=== PATIENT | male | born 1955 | race Two or more races ===

== ENCOUNTER 2018-06-04 21:15 | Inpatient (IN) | payer SELFPAY ==
[~2018-06-04] VITALS: Ht 170.2 cm; Wt 48.5 kg
--- NOTE | 2018-06-04 21:35 | NUR ---
PT BBRA FROM THE STREET FOR L HIP PAIN, ALSO C/O PROD COUGH; PT AAOX4, PT ON MONITOR, VSS, NAD NOTED, PENDING ER PROVIDER EVAL
[2018-06-04] MEDS ORDERED: ONDANSETRON HCL/PF 4 MG/2 ML VIAL ONE (22:00)
[2018-06-04] MEDS ORDERED: ONDANSETRON HCL/PF 4 MG/2 ML VIAL IVP ONE (22:00)
[2018-06-04] MEDS ORDERED: IV NS 0.9% 1,000 ML BAG IV ONE (22:00)
[2018-06-04] MEDS ORDERED: MORPHINE SULFATE INJ 2 MG/ML DISP.SYRIN IV ONE ×2 (22:00→22:30)
[2018-06-04] MEDS ORDERED: MORPHINE SULFATE INJ 4 MG/ML DISP.SYRIN ONE ×2 (22:01→23:11)
[2018-06-04 22:03] LABS: BASOPHILS # (AUTO) 0.1 /CMM (0.0-0.2); BASOPHILS % (AUTO) 0.8 % (0.0-2.0); EOSINOPHILS % (AUTO) 0.6 % (0.0-6.0); HEMATOCRIT 43 % (39-51); HEMOGLOBIN 14.2 g/dL (13.5-17.5); LYMPHOCYTES # (AUTO) 1.3 /CMM (0.8-4.8); LYMPHOCYTES % (AUTO) 14.3 % (20.0-44.0); MEAN CORPUSCULAR HGB CONC 33 g/dl (31.0-36.0); MEAN CORPUSCULAR VOLUME 87 fL (80-96); MONOCYTES # (AUTO) 0.5 /CMM (0.1-1.30); NEUTROPHILS # (AUTO) 7.1 /CMM (1.8-8.9); NEUTROPHILS % (AUTO) 78.3 % (43.0-81.0); PLATELET COUNT (AUTO) 493 /CMM (150-450); RED BLOOD CELL COUNT(AUTO) 4.88 MIL/uL (4.5-6.0)
[2018-06-04 22:17] LABS: ALBUMIN 2.9 g/dL (3.4-5.0); BILIRUBIN,DIRECT 0.1 mg/dL (0.0-0.2); BILIRUBIN,TOTAL 0.5 mg/dL (0.2-1.0); CALCIUM, SERUM 8.8 mg/dL (8.5-10.1); CREATININE 0.6 mg/dL (0.6-1.3); POTASSIUM 3.9 mmol/L (3.5-5.1); TOTAL PROTEIN, SERUM 7.2 g/dL (6.4-8.2)
--- NOTE | 2018-06-04 22:46 | NUR ---
UZMA PERRY FOR CONSULT - DISABILITIES CAREGIVER DR. RANDOLPH Addendum: 06/04/18 at 2247 by KALEN PAGE WAS SENT OUT AT [id number]
--- NOTE | 2018-06-04 22:52 | NUR ---
PAGED [employer] FOR PANEL - CHASER TAR DR SALINAS
--- NOTE | 2018-06-04 23:26 | NUR ---
REPORT GIVEN TO TING ESCOBEDO FOR TRICIA; PT WILL BE TRANSORTED TO 3RD FLOOR VIA GURNEY WITH SPRING ENCASER
--- NOTE | 2018-06-04 23:55 | NUR ---
ADMISSION NOTES: RECEIVED REPORT FROM MUNIRA ESCOBEDO. PT BROUGHT TO THE UNIT VIA GURNEY, PT IS HOMELESS, S/P TRIP AND FALL LANDING ONTO LEFT HIP. TRANSFERRED TO BED USING LOG ROLL TECHNIQUE WITH LEFT HIP PRECAUTIONS, LLE OFFLOADED ON ROLLED TOWEL. ORIENTED PT TO UNIT POLICY AND HOURLY ROUNDING. IV ACCESS PATENT AND FLUSHING WELL, ON HL. SKIN ASSESSMENT PERFORMED. BED BATH PROVIDED TO THE PT BY MECHANICAL TECHNICAL SERVICE SPECIALIST. INVENTORY OF BELONGINGS COMPLETED BY PALLAVI DUMONT, PT BROUGHT SO MUCH BELONGINGS, AND CONTRABANDS, TOOK PICTURES, WILL BE ATTACHED TO CHART. WOUND CARE CONSULT OBTAINED. VS TAKEN AND RECORDED. SAFETY PRECAUTIONS FOR FALL INITIATED, CALL LIGHT IN REACH, WILL CONTINUE MONITORING PT.
[2018-06-05] VITALS: BP 132/85
[2018-06-05] MEDS ORDERED: ONDANSETRON HCL/PF 4 MG/2 ML VIAL IVP PRN
[2018-06-05] MEDS ORDERED: ZOLPIDEM TARTRATE 5 MG TABLET PO PRN
[2018-06-05] MEDS ORDERED: ACETAMINOPHEN 325 MG TABLET PO PRN
[2018-06-05] MEDS ORDERED: Z GUARD REMEDY 2 OZ OINT TP PRN
[2018-06-05] MEDS ORDERED: MAG HYDROX/AL HYDROX/SIMETH 30 ML UDC PO PRN
[2018-06-05] MEDS ORDERED: MAGNESIUM HYDROXIDE 30 ML UDC PO PRN
[2018-06-05] MEDS ORDERED: HYDROCODONE/APAP 5/325MG 1 EACH TABLET PO PRN
[2018-06-05] MEDS ORDERED: METF-440 PO (02:36)
[2018-06-05] MEDS: ENOXAPARIN SODIUM 40 MG/0.4 ML DISP.SYRIN SQ SCH (02:48)
[2018-06-05] MEDS ORDERED: OXYC-128 PO (02:57)
--- NOTE | 2018-06-05 02:58 | NUR ---
RN NOTES: PT C/O PAIN IN HIS LEFT HIP, REQUESTING FOR PERCOCET, PT REFUSING NORCO, CONTACTED FIRE DEPARTMENT BATTALION CHIEF MD, RELAYED REQUEST OF PT TO GET PERCOCET NORCO NOT EFFECTIVE FOR HIS PAIN, PER MD TO DC NORCO, AND ORDER PERCOCET 5/325 MG TAB PO Q4HRS PRN FOR 4-7 PAIN
--- NOTE | 2018-06-05 03:05 | NUR ---
RN NOTES: MADE MD AWARE ABOUT PT'S HX OF DM AND WAS ON METFORMIN 500MG TAB PO BID, PER MD " WILL CHECK HGBA1C AND WILL FOLLOW"
--- NOTE | 2018-06-05 03:06 | NUR ---
CLARIFICATION OF ORDER: PERCOCET 5/325 MG TAB Q4HRS PRN FOR 8-10 SEVERE PAIN PER MD
[2018-06-05] MEDS: oxyCODONE/APAP (5/325 MG) 1 UDTAB TABLET PO PRN ×3 (03:10→13:44)
--- NOTE | 2018-06-05 03:11 | NUR ---
PRN PERCOCET: PT C/O 10/24 LEFT HIP PAIN REQUESTING FOR PERCOCET, PRN PERCOCET 5/325 MG TAB PO ADMINISTERED TO THE PT AT THIS TIME, WILL CONTINUE TO MONITOR AND REASSESS PT
--- NOTE | 2018-06-05 03:30 | NUR ---
RN NOTES: PT ABLE TO TURN AND REPOSITON HIMSELF, ENCOURAGE TO CHANGE HIS POSITION EITHER LAYING ON HIS RIGHT SIDE OR BACK EVERY 2HRS IN ORDER TO PREVENT ANY PRESSURE ULCER OR WORSENING OF ANY SKIN ISSUES. PT NOTED TO HAVE SUSPECTED DTI ON SACRAL AREA ALTHOUGH SKIN AROUND AREA IS INTACT.
--- NOTE | 2018-06-05 06:31 | NUR ---
RN CLOSING NOTES: PT REMAINS A/O X3, ON RA, LEFT HIP P[RECAUTION, REFUSED SCD, EDUCATION PROVIDED TO THE PT. IV ACCESS REMAINS PATENT AND FLUSHING WELL, ON HL. FOR ORTHO CONSULT IN AM. VS REMAINS STABLE, NEEDS ATTENDED, URINAL WITHIN REACH. SAFETY PRECAUTIONS FOR FALL REMAINS ENGAGED, CALL LIGHT IN REACH, WILL ENDORSE TO DAY RN FOR CONTINUITY OF CARE.
[2018-06-05 07:11] LABS: BASOPHILS % (AUTO) 0.5 % (0.0-2.0); HEMATOCRIT 39 % (39-51); HEMOGLOBIN 13.6 g/dL (13.5-17.5); LYMPHOCYTES # (AUTO) 1.6 /CMM (0.8-4.8); LYMPHOCYTES % (AUTO) 23.5 % (20.0-44.0); MEAN CORPUSCULAR HGB CONC 35 g/dl (31.0-36.0); MEAN CORPUSCULAR VOLUME 86 fL (80-96); MONOCYTES # (AUTO) 0.5 /CMM (0.1-1.30); MONOCYTES % (AUTO) 7.6 % (2.0-12.0); NEUTROPHILS # (AUTO) 4.6 /CMM (1.8-8.9); NEUTROPHILS % (AUTO) 67.4 % (43.0-81.0); PLATELET COUNT (AUTO) 466 /CMM (150-450); RED BLOOD CELL COUNT(AUTO) 4.51 MIL/uL (4.5-6.0); WHITE BLOOD COUNT (AUTO) 6.9 K/uL (4.3-11.0)
[2018-06-05 07:19] LABS: CALCIUM, SERUM 8.6 mg/dL (8.5-10.1); CREATININE 0.5 mg/dL (0.6-1.3); MAGNESIUM 1.9 mg/dL (1.8-2.4); PHOSPHORUS 2.1 mg/dL (2.5-4.9); POTASSIUM 3.9 mmol/L (3.5-5.1)
--- NOTE | 2018-06-05 07:43 | NUR ---
m/s heavy duty custodian: notes c/o 10/24 left hip pain, medicated with percocet 1 tab po as ordered. instructed to call for assistance. will continue to monitor.
[2018-06-05 08:00] VITALS: BP 123/79
--- NOTE | 2018-06-05 08:43 | NUR ---
m/s route service manager: notes voiced no discomfort at this time. call light within reach. will monitor.
--- NOTE | 2018-06-05 08:53 | NUR ---
WOUND CARE CONSULT: PT PRESENTS WITH DRY ABRASIONS TO EXTREMITIES AND TO RT EYEBROW AREA AND INTACT DEEP TISSUE INJURY TO SACRUM, PRESENT ON ADMISSION. BRUISING NOTED TO LEFT HIP PRESENT ON ADMISSION. RECOMMENDATIONS MADE FOR SKIN PROTECTION. DISCUSSED WITH NURSING STAFF. CURRENT GLADYS SCORE IS 14. ISOFLEX LOW AIRLOSS BED TO BE PLACED. PT IS CACHECTIC. DIETARY FOLLOW UP RECOMMENDED. Addendum: 06/05/18 at 0855 by TANVIR HOROWITZ WNDNU Amended: Links added.
[2018-06-05] MEDS ORDERED: BISACODYL (5 MG) 5 MG TABLET.DR PO PRN (09:00)
[2018-06-05] MEDS ORDERED: MAGNESIUM CITRATE 296 ML BOTTLE PO ONE (09:00)
--- NOTE | 2018-06-05 10:00 | NUR ---
m/s tip cementer: md visit seen and examined by roxy (em) at this time. will continue to monitor.
--- NOTE | 2018-06-05 10:15 | NUR ---
m/s director specialty: social service consult abiel (s.[email or web address]) at bedside at this time.
--- NOTE | 2018-06-05 11:30 | NUR ---
m/s tomographic tech: notes alfred blum (cici.a.) here and informed me no surgery needed and will see pt. will continue to monitor.
--- NOTE | 2018-06-05 11:34 | NUR ---
Social service consult requested by JACQUI Vaughn for homelessness. Pt. is a 62 year old male who was admitted to [facility] for left hip fracture. Per doctor's notes, pt. states he tripped and fell yesterday onto his left hip. Pt. has a significant history fo left hip replacement. LD met with pt. bedside. Pt. is alert and oriented x 3. Pt. states he has been homeless for the past 6 years. Pt. stays in a tent near the [place] in [place]. Pt. receives SSI per month in the amount of $1869. Pt. drinks a glass of wine every night or every couple of days. Pt. denies any drug use. Pt. smokes a pack of cigarettes per day. Pt. states he has depression but is not taking any medication for it. Pt. denies suicidal and homicidal ideations and visual/auditory hallucinations. LD informed pt. that depending on his fracture he might be deemed appropriate for a SNF. Pt. stated, he is not sure if he would want to go and states he can try to use a wheelchair or crutches if he has to. LD informed pt. the doctor will have to deem what would be an appropriate discharge plan. Pt. understood. pension manager Renee Sparks has been updated with the aforementioned information.
--- NOTE | 2018-06-05 12:00 | NUR ---
m/s senior cisco network engineer: notes lunch served. instructed to call for assistance. will monitor.
[2018-06-05] MEDS ORDERED: HYDROMORPHONE INJ 0.5 MG/0.5 ML SYRINGE IV PRN (12:30)
[2018-06-05] MEDS ORDERED: DEXTROSE 50%-WATER 50 ML DISP.SYRIN IV PRN (12:30)
[2018-06-05] MEDS ORDERED: K PHOS NEUTRAL 250 MG TABLET PO ONE (13:30)
--- NOTE | 2018-06-05 13:44 | NUR ---
m/s plaster tender: notes c/o 11/24 left hip pain, medicated with percocet 1 tab po as ordered. instructed to call for assistance. will continue to monitor.
[2018-06-05] MEDS: GLUCERNA SHAKE 237 ML CAN PO SCH ×2 (14:00→17:11)
--- NOTE | 2018-06-05 14:44 | NUR ---
m/s cold food packer: notes pt verbalized some relief of left hip pain. instructed to call for assistance. will continue to monitor.
--- NOTE | 2018-06-05 15:00 | NUR ---
m/s seat joiner: notes transferred to isoflex bed at this time. kept comfortable. will continue to monitor.
--- NOTE | 2018-06-05 15:08 | NUR ---
m/s device test engineer: notes f/u made to dietary dept re: glucsusanne, spoke to alisson and informed that it will come on the dinner tray.
[2018-06-05 16:10] VITALS: BP 116/86
--- NOTE | 2018-06-05 16:38 | NUR ---
Patient is admitted due to left hip injury s/p fall.Patient states he has been homeless for the past 6 years. Seen and evaluated by licensed clinical social worker earlier. Patient states he lives in a tent near the [place] in [place]. Patient receives SSI per month in the amount of $1869. He drinks a glass of wine every night or every couple of days. He denies any drug use. He smokes a pack of cigarettes per day. Patient states he has depression but is not taking any medication for it. He denies suicidal and homicidal ideations and visual/auditory hallucinations. Awaiting ortho consult, patient might need placement depending on his mobility status and adl's needs. Addendum: 06/05/18 at 1639 by MADHAVI DIAS RN Amended: Links added.
[2018-06-05] MEDS: INSULIN REGULAR, HUMAN 100 UNIT/ML 3 ML VIAL SQ PRN ×2 (17:04→22:06)
[2018-06-05] MEDS: BLOOD SUGAR DIAGNOSTIC 1 EACH STRIP IN SCH ×2 (17:04→22:04)
--- NOTE | 2018-06-05 17:34 | NUR ---
m/s rural sociologist: ortho consult seen and examined by alfred blum (ana) with verbal order for p.t. eval and wbat. orders read back and carried out and acknowledged.
--- NOTE | 2018-06-05 18:42 | NUR ---
m/s boilermaker pipe fitter: notes resting comfortable in bed. needs attended. no apparent distress noted. call light within reach.
--- NOTE | 2018-06-05 19:05 | NUR ---
MS RN NOTES: RECEIVED PT IN BED AWAKE. PT A/O X4 AND ABLE TO MAKE NEEDS KNOWN. IV ACCESS ON LFA #18G PATENT AND INTACT, HL. SAFETY PRECAUTIONS IN PLACE WITH BED IS LOWEST POSITION AND SIDE RAILS UP X2. CALL LIGHT IN REACH. WILL CONTINUE TO MONITOR.
--- NOTE | 2018-06-05 19:05 | NUR ---
m/s shoe repairer apprentice: notes bedside report given to ac (rn) for continuity of care.
[2018-06-05] MEDS: HYDROMORPHONE 1 MG/1 ML DISP.SYRIN IV PRN (19:58)
[2018-06-05 20:00] VITALS: BP 134/76
[2018-06-06] MEDS: ENOXAPARIN SODIUM 40 MG/0.4 ML DISP.SYRIN SQ SCH (00:12)
[2018-06-06] MEDS: HYDROMORPHONE 1 MG/1 ML DISP.SYRIN IV PRN ×4 (02:23→21:45)
--- NOTE | 2018-06-06 02:25 | NUR ---
[place] ms covering notes patient complaint of pain left hip 12/24 requesting for dilaudid vs wnl 134/81,18,77,97% ra,12/24 prn dilaudid given as ordered will continur to monitor and endorse to nurse. Addendum: 06/06/18 at 0228 by BENJAMIN DOWD RN dilaudid 1ml given as ordered
[2018-06-06] MEDS: BLOOD SUGAR DIAGNOSTIC 1 EACH STRIP IN SCH ×3 (06:45→17:38)
--- NOTE | 2018-06-06 07:00 | NUR ---
MS RN NOTES: PT IN BED SLEEPING BUT EASILY AWOKEN VERBALLY OR BY TOUCH. PT A/O X4 AND ABLE TO MAKE NEEDS KNOWN. IV ACCESS ON LFA #18G PATENT AND INTACT, HL. RESPIRATIONS EVEN AND UNLABORED WITH NO S/S OF ACUTE DISTRESS OR SOB THROUGHOUT SHIFT. SAFETY PRECAUTIONS IN PLACE WITH BED IS LOWEST POSITION AND SIDE RAILS UP X2. CALL LIGHT IN REACH. WILL ENDORSE TO ONCOMING NURSE FOR CONTINUATION OF CARE.
[2018-06-06 07:32] LABS: BASOPHILS % (AUTO) 0.8 % (0.0-2.0); EOSINOPHILS % (AUTO) 2.3 % (0.0-6.0); HEMATOCRIT 39 % (39-51); MEAN CORPUSCULAR HGB CONC 34 g/dl (31.0-36.0); MEAN CORPUSCULAR VOLUME 86 fL (80-96); MONOCYTES # (AUTO) 0.3 /CMM (0.1-1.30); MONOCYTES % (AUTO) 5.8 % (2.0-12.0); NEUTROPHILS # (AUTO) 4.3 /CMM (1.8-8.9); NEUTROPHILS % (AUTO) 74.1 % (43.0-81.0); PLATELET COUNT (AUTO) 424 /CMM (150-450); RED BLOOD CELL COUNT(AUTO) 4.46 MIL/uL (4.5-6.0); WHITE BLOOD COUNT (AUTO) 5.7 K/uL (4.3-11.0)
--- NOTE | 2018-06-06 07:38 | NUR ---
MS RN NOTES PT REFUSED INSULIN COVERAGE FOR BS 350. EXPLAINED RISKS AND BENEFITS AND PT VERBALIZED UNDERSTANDING.
[2018-06-06 07:44] LABS: CALCIUM, SERUM 8.4 mg/dL (8.5-10.1); CREATININE 0.6 mg/dL (0.6-1.3); POTASSIUM 4.1 mmol/L (3.5-5.1)
--- NOTE | 2018-06-06 07:59 | NUR ---
MS RN NOTES PATIENT RECEIVED RESTING INSIDE ROOM. AWAKE, ALERT AND ORIENTED X4, VERBALLY RESPONSIVE AND RESPONDS TO VERBAL AND TACTILE STIMULI. BREATHING EVEN AND UNLABORED. NO CHANGES IN LOC NOTED AT THIS TIME. PATIENT CALM AND RELAXED. DENIES ANY PAIN OR DISCOMFORT. RECEIVED ENDORSEMENT FROM PREVIOUS SHIFT THAT PATIENT REFUSES TO HAVE INSULIN. WITH REPORT OF HIGH FSBS RESULTS. SPOKE WITH PATIENT AND PATIENT INSISTS THAT HE SHOULDNT HAVE INSULIN. RISKS AND BENEFITS EXPLAINED BUT TO NO AVAIL. PATIENT STRONGLY REFUSES TO HAVE INSULIN. HOSPITALIST AWARE. WILL CONTINUE TO MONITOR. BED LOCKED AND IN LOW POSITION. BILATERAL UPPER SIDE RAILS UP AND LOCKED. CALL LIGHT WITHIN EASY REACH
[2018-06-06 08:00] VITALS: BP 126/76
[2018-06-06] MEDS: GLUCERNA SHAKE 237 ML CAN PO SCH ×3 (08:38→17:40)
[2018-06-06] MEDS ORDERED: OXYC-128 PO (10:17)
[2018-06-06] MEDS ORDERED: METF-440 PO (10:17)
--- NOTE | 2018-06-06 11:11 | NUR ---
MS RN NOTES PATIENT SEEN AND EVALUATED BY PT. PATIENT AMBULATED WITH EASE WITH USE OF FWW. DENIES ANY PAIN OR DISCOMFORT. WITH RECOMMENDATION THAT PATIENT WILL BENEFIT WITH USE OF FWW WHEN DISCHARGED. VALERIE MANAGER UROLOGY MADE AWARE AND GAVE OK. CENTRAL SUPPLY MADE AWARE. WILL PROVIDE FWW TO PATIENT UPON DISCHARGE. WILL CONTINUE TO MONITOR
[2018-06-06] MEDS: INSULIN REGULAR, HUMAN 100 UNIT/ML 3 ML VIAL SQ PRN ×2 (12:03→17:38)
--- NOTE | 2018-06-06 12:18 | NUR ---
MS RN NOTES FSBS TAKEN PRIOR TO LUNCH WITH RESULT OF 386. REPEATED TEST PER PROTOCOL WITH RESULT OF 407. PATIENT AGREED TO HAVE INSULIN ADMINISTERED. GIVEN INSULIN PER SLIDING SCALE. VALERIE CUSTOMER SERVICE CASHIER MADE AWARE. NO NEW ORDERS AT THIS TIME. WILL CONTINUE TO MONITOR
[2018-06-06 16:00] VITALS: BP 120/82
--- NOTE | 2018-06-06 17:39 | NUR ---
MS RN NOTES PATIENT WITH FSBS RESULT OF 142. PATIENT REFUSED TO HAVE INSULIN PER SLIDING SCALE. RISKS AND BENEFITS EXPLAINED BY TO NO AVAIL. PATIENT STRONGLY REFUSED TO HAVE INSULIN. HOSPITALIST AWARE. WILL CONTINUE TO MONITOR
--- NOTE | 2018-06-06 19:28 | NUR ---
MS NOTES PATIENT RESTING INSIDE ROOM. AWAKE, ALERT AND ORIENTED, VERBALLY RESPONSIVE AND RESPONDS TO VERBAL AND TACTILE STIMULI. NO ACUTE DISTRESS NOTED AT THIS TIME. NO CHANGES IN LOC NOTED. IV INTACT AND PATENT. FWW RECEIVED FROM CENTRAL SUPPLY AND GIVEN TO PATIENT. ENDORSED TO INCOMING SHIFT FOR TRICIA. BED LOCKED AND IN LOW POSITION. BILATERAL UPPER SIDE RAILS UP AND LOCKED. CALL LIGHT WITHIN EASY REACH
[2018-06-06] MEDS: oxyCODONE/APAP (5/325 MG) 1 UDTAB TABLET PO PRN (20:25)
--- NOTE | 2018-06-06 22:30 | NUR ---
DISCHARGE NOTE: A/o X4 SIGNED AFTER CARE INSTRUCTION, AND PERSONAL BELONGING LIST. PT AMBULATING AROUND HALLWAY WITH FWW. DISCHARGED VIA W/C TO TAXI GIVEN [employer] NET DEVELOPER THE TWO VOUCHER SLIPS. OFFERED PATIENT TO STAY THE NIGHT IN THE HOSPITAL. PT REFUSED" STATED " I WANT TO BE DISCHARGED TONIGHT!" d/C S/L CATH INTACT. GIVEN R/X PERCOCET AND METAFORMIN. C/0 2-10 Hip pain Denies of any other distress.
== END 2018-06-06 22:20 | disposition home or self-care (01) | DRG 536 ==
LOC: ER 21:17 → MED 23:34
PROVIDERS: ADMIT Internal Medicine; ATTEND Nurse Practitioner Acute Care
DX: S72.115A Nondisplaced fracture of greater trochanter of left femur, initial encounter for closed fracture (principal); E44.0 Moderate protein-calorie malnutrition; W01.0XXA Fall on same level from slipping, tripping and stumbling without subsequent striking against object, initial encounter; Y92.9 Unspecified place or not applicable; E78.5 Hyperlipidemia, unspecified; I10 Essential (primary) hypertension; Y92.89 Other specified places as the place of occurrence of the external cause; E11.9 Type 2 diabetes mellitus without complications; Z59.0 Homelessness; K21.9 Gastro-esophageal reflux disease without esophagitis; F20.9 Schizophrenia, unspecified; Z96.642 Presence of left artificial hip joint; Z90.49 Acquired absence of other specified parts of digestive tract; M19.90 Unspecified osteoarthritis, unspecified site; Z91.19 Patient's noncompliance with other medical treatment and regimen
CPT/HCPCS: 36415; 71045-TC; 73502; 73700-TC; 80048-TC; 80076-TC; 82962-TC; 83735-TC; 84100-TC; 85025-TC; 85730-TC; 87081-TC; G0378; J1170; J1650; J1815; J2270; J2405; J7030

== ENCOUNTER 2019-02-16 03:56 | Inpatient (IN) | payer MEDICAID ==
[~2019-02-16] VITALS: Ht 170.2 cm; Wt 52.2 kg
[~2019-02-16 03:56] MED LIST: LEVO750T21; METF-440 PO
--- NOTE | 2019-02-16 04:14 | NUR ---
PT BIB RA WITH A C/O FEELING COLD AND HX OF PNA. PT HAS A CHESTY COUGH W/RHONCHI NOTED. DR. STRANGE IS AT THE BEDSIDE EVALUATING THE PT. PT STATED THAT HE SMOKES CIGARETTES DAILY. PT IS ON THE MONITOR AND CONTINUOUS PULSE OX. PT IS SPEAKING IN COMPLETE SENTENCES, BUT IS C/O NOT BEING ABLE TO BREATHE. WILL CONTINUE TO MONITOR THE PT.
[2019-02-16] MEDS ORDERED: LEVOFLOXACIN 750 MG /D5W 150ML 150 ML IV ONE ×2 (04:19→04:30)
--- NOTE | 2019-02-16 04:20 | NUR ---
IV STARTED, BLOOD CULTURES X 2 DRAWN AND LABS DRAWN. EKG IN PROGRESS. PT IS ON THE MONITOR AND CONTINUOUS PULSE OX.
--- NOTE | 2019-02-16 04:35 | NUR ---
INFLUENZA SWAB SENT.
[2019-02-16 04:36] LABS: BASOPHILS # (AUTO) 0.1 /CMM (0.0-0.2); BASOPHILS % (AUTO) 0.5 % (0.0-2.0); EOSINOPHILS % (AUTO) 0.8 % (0.0-6.0); HEMATOCRIT 46 % (39-51); LYMPHOCYTES # (AUTO) 1.3 /CMM (0.8-4.8); LYMPHOCYTES % (AUTO) 10.9 % (20.0-44.0); MEAN CORPUSCULAR HGB CONC 33 g/dl (31.0-36.0); MEAN CORPUSCULAR VOLUME 87 fL (80-96); MONOCYTES # (AUTO) 0.6 /CMM (0.1-1.30); MONOCYTES % (AUTO) 5.2 % (2.0-12.0); NEUTROPHILS # (AUTO) 9.5 /CMM (1.8-8.9); NEUTROPHILS % (AUTO) 82.6 % (43.0-81.0); PLATELET COUNT (AUTO) 397 /CMM (150-450); RED BLOOD CELL COUNT(AUTO) 5.22 MIL/uL (4.5-6.0); WHITE BLOOD COUNT (AUTO) 11.5 K/uL (4.3-11.0)
[2019-02-16 05:00] LABS: ALANINE AMINOTRANSFERASE 18 U/L (12-78); ALBUMIN 3.1 g/dL (3.4-5.0); ALKALINE PHOSPHATASE 90 U/L (46-116); ASPARTATE AMINOTRANSFERASE 14 U/L (15-37); B-TYPE NATRIURETIC PEPTIDE 48 PG/ML (0-125); BILIRUBIN,DIRECT 0.1 mg/dL (0.0-0.2); BILIRUBIN,TOTAL 0.4 mg/dL (0.2-1.0); CARBON DIOXIDE 33 mmol/L (21-32); CHLORIDE 100 mmol/L (98-107); CREATININE 0.7 mg/dL (0.6-1.3); POTASSIUM 4.3 mmol/L (3.5-5.1); SODIUM SERUM 137 mmol/L (136-145); TOTAL PROTEIN, SERUM 6.6 g/dL (6.4-8.2); UREA NITROGEN, BLOOD 10 mg/dL (7-18)
[2019-02-16 05:02] LABS: GLUCOSE 495 mg/dL (74-106)
[2019-02-16] MEDS ORDERED: INSULIN REGULAR, HUMAN 100 UNIT/ML 10 ML VIAL ONE (05:29)
[2019-02-16] MEDS ORDERED: INSULIN REGULAR, HUMAN 100 UNIT/ML 10 ML VIAL IV ONE (05:30)
[2019-02-16] MEDS ORDERED: IV NS 0.9% 1,000 ML BAG IV ONE (05:30)
--- NOTE | 2019-02-16 05:37 | NUR ---
RECHECKED PT'S BLOOD SUGAR. GLUCOSE IS 443. MD IS AWARE AND VERIFIED 15 UNITS OF INSULIN IV TO BE GIVEN.
--- NOTE | 2019-02-16 05:46 | NUR ---
CALLED NURSING SUP FOR BED
[2019-02-16] MEDS ORDERED: IV NS 0.9% 1,000 ML IV PRN (06:45)
[2019-02-16] MEDS ORDERED: ZOLPIDEM TARTRATE 5 MG TABLET PO PRN (07:00)
[2019-02-16] MEDS ORDERED: DEXTROSE 50%-WATER 50 ML DISP.SYRIN IV PRN (07:00)
[2019-02-16] MEDS ORDERED: Z GUARD REMEDY 2 OZ OINT TP PRN (07:00)
[2019-02-16] MEDS ORDERED: HYDROCODONE/APAP 5/325MG 1 EACH TABLET PO PRN (07:00)
[2019-02-16] MEDS ORDERED: ONDANSETRON HCL/PF 4 MG/2 ML VIAL IVP PRN (07:00)
[2019-02-16] MEDS ORDERED: ACETAMINOPHEN 325 MG TABLET PO PRN (07:00)
[2019-02-16] MEDS ORDERED: MAG HYDROX/AL HYDROX/SIMETH 30 ML UDC PO PRN (07:00)
[2019-02-16] MEDS ORDERED: MAGNESIUM HYDROXIDE 30 ML UDC PO PRN (07:00)
[2019-02-16] MEDS ORDERED: METF-440 PO (08:00)
[2019-02-16] MEDS ORDERED: UNK INSULIN (08:02)
[2019-02-16] MEDS ORDERED: [UNRECOGNIZED DRUG - REMARK] (08:02)
--- NOTE | 2019-02-16 08:13 | NUR ---
report given to dodie for tresa.
--- NOTE | 2019-02-16 08:20 | NUR ---
tele automation qtp tester: admission admitted this 63 year old male pt from e.. with dx: pneumonia. awake, a/ox3. noted with low motivation during admitting process. no c/o pain at this time. appears weak. oriented to room and surroundings. place pt on tele sr with pac's. noted with a black eye to right periorbital area. pt refused full body assessment. pt is homeless. offered bathing and linen change but pt refused at this time. pt wants to eat and rest as stated. vss. instructed to call for assistance. will continue to monitor.
[2019-02-16 09:00] VITALS: BP 115/73
--- NOTE | 2019-02-16 09:26 | NUR ---
wheeled patient via gurney accompanied by RN and emt in no distress.
[2019-02-16] MEDS: BLOOD SUGAR DIAGNOSTIC 1 EACH STRIP IN SCH ×4 (09:56→21:32)
[2019-02-16] MEDS: PANTOPRAZOLE 40 MG TABLET.DR PO SCH (09:58)
--- NOTE | 2019-02-16 11:50 | NUR ---
tele rollway man: notes pt bargaining for blood sugar check, pt wants to eat first. educated pt on accu check and diabetes, pt agreed after teaching provided. will continue to monitor.
[2019-02-16] MEDS: INSULIN REGULAR, HUMAN 100 UNIT/ML 3 ML VIAL SQ PRN ×2 (12:03→21:35)
--- NOTE | 2019-02-16 12:04 | NUR ---
tele rn medicare: notes pt refused insulin coverage despite teaching, stated, "it's normal for me."
--- NOTE | 2019-02-16 12:30 | NUR ---
tele heel burnisher: md visit seen and examined by dr. carroll with order. order acknowledged.
--- NOTE | 2019-02-16 13:25 | NUR ---
m/s agricultural aircraft pilot: notes incontinent care of bowel and bladder rendered by property accountant. visualized sacral and buttocks, no skin breakdown noted. instructed to call for assistance.
--- NOTE | 2019-02-16 13:35 | NUR ---
m/s engineer intern: p.t. charissa p.t. eval done by physical therapist. p.t. will forklift picker pt.
--- NOTE | 2019-02-16 15:30 | NUR ---
m/s automobile or truck rental dispatcher: notes resting comfortable in bed. no distress noted. will continue to monitor.
[2019-02-16 16:00] VITALS: BP 139/85
--- NOTE | 2019-02-16 17:30 | NUR ---
m/s biostatistics director: notes dinner served. hob elevated. instructed to call for assistance. will continue to monitor.
[2019-02-16] MEDS: METFORMIN 500 MG TABLET PO SCH (17:57)
--- NOTE | 2019-02-16 19:00 | NUR ---
m/s marking devices assembler: notes pt refusing iv fluids at this time. needs attended. instructed to call for assistance. will continue to monitor.
--- NOTE | 2019-02-16 19:26 | NUR ---
m/s executive relations specialist: notes report given to molina (rn) for continuity of care.
--- NOTE | 2019-02-16 19:35 | NUR ---
RN NOTES RECEIVED PATIENT AWAKE LYING IN BED. NO APPARENT SIGNS OF RESPIRATORY DISTRESS, BREATHING EVEN AND UNLABORED, SAFETY MEASURES IN PLACED, ASPIRATION PRECAUTION EMPHASIZED, CALL LIGHT WITHIN EASY REACH, IV ACCESS INTACT AND PATENT, ALL NEEDS ATTENDED, WILL CONTINUE TO MONITOR ACCORDINGLY.
[2019-02-16 20:00] VITALS: BP 130/78
[2019-02-17] MEDS ORDERED: LEVOFLOXACIN 750 MG /D5W 150ML 750 MG in PREMIX 1 EA IV SCH (04:00)
--- NOTE | 2019-02-17 06:06 | NUR ---
RN NOTES ALL NEEDS ATTENDED AND MET, ABLE TO REST AND SLEPT WITH LONG INTERVALS, PATIENT AWAKE LYING IN BED AT THIS TIME. NO APPARENT SIGNS OF RESPIRATORY DISTRESS, BREATHING EVEN AND UNLABORED, SAFETY MEASURES IN PLACED, ASPIRATION PRECAUTION EMPHASIZED, CALL LIGHT WITHIN EASY REACH, IV ACCESS INTACT AND PATENT,WILL ENDORSE TO AM NURSE FOR CONTINUITY OF CARE.
[2019-02-17] MEDS: INSULIN REGULAR, HUMAN 100 UNIT/ML 3 ML VIAL SQ PRN ×2 (06:26→12:06)
[2019-02-17] MEDS: BLOOD SUGAR DIAGNOSTIC 1 EACH STRIP IN SCH ×2 (06:45→12:06)
--- NOTE | 2019-02-17 07:30 | NUR ---
RN MS NOTES PT IN BED, AWAKE, ALERT AND ORIENTED, NO COMPLAINT OF PAIN, NOT IN DISTRESS, ON ROOM AIR, TOLERATING WELL, IV FLUIDS INFUSING WELL, CALL LIGHT WITHIN REACH, NEEDS ATTENDED.
[2019-02-17 07:53] LABS: BASOPHILS % (AUTO) 0.4 % (0.0-2.0); EOSINOPHILS % (AUTO) 0.9 % (0.0-6.0); HEMATOCRIT 39 % (39-51); HEMOGLOBIN 13.1 g/dL (13.5-17.5); LYMPHOCYTES # (AUTO) 1.4 /CMM (0.8-4.8); LYMPHOCYTES % (AUTO) 20.5 % (20.0-44.0); MEAN CORPUSCULAR HGB CONC 34 g/dl (31.0-36.0); MEAN CORPUSCULAR VOLUME 86 fL (80-96); MONOCYTES # (AUTO) 0.4 /CMM (0.1-1.30); MONOCYTES % (AUTO) 6.3 % (2.0-12.0); NEUTROPHILS # (AUTO) 4.8 /CMM (1.8-8.9); NEUTROPHILS % (AUTO) 71.9 % (43.0-81.0); PLATELET COUNT (AUTO) 330 /CMM (150-450); RED BLOOD CELL COUNT(AUTO) 4.51 MIL/uL (4.5-6.0); WHITE BLOOD COUNT (AUTO) 6.7 K/uL (4.3-11.0)
[2019-02-17 08:00] VITALS: BP 127/80
[2019-02-17] MEDS: METFORMIN 500 MG TABLET PO SCH (08:15)
[2019-02-17] MEDS: PANTOPRAZOLE 40 MG TABLET.DR PO SCH (08:15)
[2019-02-17 08:18] LABS: ALBUMIN 2.4 g/dL (3.4-5.0); BILIRUBIN,TOTAL 0.4 mg/dL (0.2-1.0); CALCIUM, SERUM 7.9 mg/dL (8.5-10.1); CREATININE 0.5 mg/dL (0.6-1.3); MAGNESIUM 1.6 mg/dL (1.8-2.4); PHOSPHORUS 2.3 mg/dL (2.5-4.9); POTASSIUM 3.8 mmol/L (3.5-5.1); TOTAL PROTEIN, SERUM 5.5 g/dL (6.4-8.2)
--- NOTE | 2019-02-17 09:30 | NUR ---
RN MS NOTES PT SEEN AND EXAMINED BY DR. SIU, PLAN OF CARE DISCUSSED WITH PT, VERBALIZED UNDERSTANDING.
[2019-02-17] MEDS: Magnesium 1GM/D5W 100ML PREMIX 100 ML IV SCH ×2 (11:17→12:52)
--- NOTE | 2019-02-17 13:00 | NUR ---
RN MS NOTES PT SEEN BY DIETETIC AIDE AND DATABASE SPECIALIST, DISCHARGE PLAN DISCUSSED WITH PT, PT ALSO SEEN BY PHYSICAL THERAPIST, PT ABLE TO WALK ALONG THE HALLWAY WITH PHYSICAL THERAPIST, TOLERATED WELL.
[2019-02-17] MEDS ORDERED: K PHOS NEUTRAL 250 MG TABLET PO ONE (13:30)
--- NOTE | 2019-02-17 13:41 | NUR ---
Social service consult requested by Torrse Aguiar MD for homelessness and discharge planning. Pt is a 63 year old male who was admitted to [facility] for pneumonia. SW met with pt at bedside. Pts belongings were at bed side. Pt is alert and oriented x4 (person, place, time situation). Pt was calm and cooperative with SW during the entire assessment. Pt is ambulatory, although he states he sometimes uses a cane due to a bad hip. Pt states he has been homeless for 7 years and stays in a homeless encampment in the [place] area, between the [facility] line and [facility]. Pt denies alcohol and drug use, but states he smokes 1 pack of cigarettes a day. Pt receives monthly SSI benefits of $1,869. SW offered a placement option of an independent living facility. Pt initially accepted and SW arranged placement with [facility] [[phone]], Independent Living facility reliability technicians, for a shared room at a cost of $600 a month. Pt then changed his mind and declined. LD then offered emergency long-term options, and pt accepted to go to a winter long-term [ [facility]; knot picker cloth address: [address] [place] [address]]. LD also provided pt with the following housing and health services referrals: [facility] [address] [place] [address]; , [facility] [address] [place] [address]; , and [facility] [address] [place] [address]; . [facility] Homeless Resources Directory and health and mental health clinic referrals were also provided. Pt denies suicidal and homicidal ideation at this time. Pt has signed homeless waiver and it has been placed in his medical chart. Pt will require a TAP card upon discharge. No other services needed at this time. SW is available if needed.
--- NOTE | 2019-02-17 14:10 | NUR ---
RN MS NOTES PT IN BED, AWAKE, ALERT AND ORIENTED, NOT IN PAIN OR DISTRESS, PT WORRIED ABOUT HIS MISSING WALLET, STATED HE LOST IT DURING TRANSPORT GOING TO THE HOSPITAL, PT SAID THAT HE WANTS TO LEAVE TO HOSPITAL TO LOOK FOR HIS WALLET, EXPLAINED TO PT THE RISKS OF LEAVING THE HOSPITAL AGAINST MEDICAL ADVICE AND THAT HE IS STILL RECEIVING TREATMENT, STATED THAT HE HAS NO CHOICE AND WOULD STILL WANT TO LEAVE, PT WANTS TO LEAVE SOON POSSIBLE, AMA FORM SIGNED, PROVIDED PT WITH A BUS PASS CARD AND A CANE, ASSISTED BY [facility] TO HOSPITAL LOBBY, LEFT IN STABLE CONDITION.
--- NOTE | 2019-02-17 15:45 | NUR ---
RN MS NOTES PAGED DR. SIU TO INFORM THAT PT LEFT AGAINST MEDICAL ADVICE, AWAITING FOR CALL BACK.
--- NOTE | 2019-02-17 16:08 | NUR ---
RN MS NOTES DR. SIU INFORMED THAT PT LEFT AMA.
== END 2019-02-17 14:10 | disposition left against medical advice (07) | DRG 138 ==
LOC: ER 03:57 → MED 05:58 → UNDOADMIN 05:58 → TELE 08:09 → MED 18:14
PROVIDERS: ADMIT Family Medicine; ATTEND Family Medicine
DX: J21.9 Acute bronchiolitis, unspecified (principal); R64 Cachexia; E44.1 Mild protein-calorie malnutrition; E11.65 Type 2 diabetes mellitus with hyperglycemia; R06.03 Acute respiratory distress; F20.9 Schizophrenia, unspecified; E88.09 Other disorders of plasma-protein metabolism, not elsewhere classified; D72.829 Elevated white blood cell count, unspecified; Z68.1 Body mass index [BMI] 19.9 or less, adult; I10 Essential (primary) hypertension; Z59.0 Homelessness; Z91.19 Patient's noncompliance with other medical treatment and regimen; F17.210 Nicotine dependence, cigarettes, uncomplicated; Z79.84 Long term (current) use of oral hypoglycemic drugs
CPT/HCPCS: 36415; 71045-TC; 71250-TC; 80048-TC; 80053-TC; 80061-TC; 80076-TC; 82962-TC; 83735-TC; 83880; 84100-TC; 84484-TC; 85025-TC; 85378-TC; 87040-TC; 87070-TC; 87081-TC; 87186-TC; 97110-TC; 97116-TC; 97530-TC; A4216; G0378; J1815; J1956; J3475; J7030

== ENCOUNTER 2019-02-25 15:27 | Emergency (ER) | payer MEDICAID ==
[~2019-02-25] VITALS: Ht 170.2 cm; Wt 47.2 kg
[~2019-02-25 15:27] MED LIST changes: -LEVO750T21; +UNK INSULIN; +[UNRECOGNIZED DRUG - REMARK]
--- NOTE | 2019-02-25 15:32 | NUR ---
[email or web address], off metformin x 1 week BS 412, PT AWAKE, ALERT, -SOB, NAD NOTED, PENDING MD DEL RIO
[2019-02-25 15:57] LABS: BASOPHILS # (AUTO) 0.1 /CMM (0.0-0.2); BASOPHILS % (AUTO) 0.5 % (0.0-2.0); EOSINOPHILS % (AUTO) 0.1 % (0.0-6.0); HEMATOCRIT 39 % (39-51); HEMOGLOBIN 12.8 g/dL (13.5-17.5); LYMPHOCYTES # (AUTO) 0.5 /CMM (0.8-4.8); LYMPHOCYTES % (AUTO) 3.4 % (20.0-44.0); MEAN CORPUSCULAR HGB CONC 33 g/dl (31.0-36.0); MEAN CORPUSCULAR VOLUME 86 fL (80-96); MONOCYTES # (AUTO) 0.5 /CMM (0.1-1.30); MONOCYTES % (AUTO) 3.7 % (2.0-12.0); NEUTROPHILS # (AUTO) 13.5 /CMM (1.8-8.9); NEUTROPHILS % (AUTO) 92.3 % (43.0-81.0); PLATELET COUNT (AUTO) 311 /CMM (150-450); RED BLOOD CELL COUNT(AUTO) 4.49 MIL/uL (4.5-6.0); WHITE BLOOD COUNT (AUTO) 14.6 K/uL (4.3-11.0)
[2019-02-25] MEDS ORDERED: IV NS 0.9% 1,000 ML BAG IV ONE ×2 (16:00→17:00)
[2019-02-25] MEDS ORDERED: METFORMIN 500 MG TABLET PO ONE (16:00)
[2019-02-25] MEDS ORDERED: METFORMIN XR 500 MG TAB.SR.24H PO ONE (16:19)
[2019-02-25 16:28] LABS: ALBUMIN 2.5 g/dL (3.4-5.0); BILIRUBIN,DIRECT 0.2 mg/dL (0.0-0.2); BILIRUBIN,TOTAL 0.8 mg/dL (0.2-1.0); CALCIUM, SERUM 7.9 mg/dL (8.5-10.1); CREATININE 0.6 mg/dL (0.6-1.3); POTASSIUM 3.6 mmol/L (3.5-5.1)
--- NOTE | 2019-02-25 17:54 | NUR ---
bs recheck 492
[2019-02-25 17:57] LABS: APPEARANCE,URINE Clear (CLEAR); BILIRUBIN,URINE Negative (NEGATIVE); BLOOD, URINE Negative Ery/uL (NEGATIVE); COLOR,URINE Yellow (YELLOW); KETONES,URINE 40 (NEGATIVE); LEUKOCYTE ESTERASE ,URINE Negative (NEGATIVE); NITRITE, URINE Negative (NEGATIVE); PROTEIN,URINE Negative (NEGATIVE); UGLUCOSE 500 MG/DL mg/dL (NEGATIVE)
[2019-02-25] MEDS ORDERED: INSULIN REGULAR, HUMAN 100 UNIT/ML 10 ML VIAL IV ONE (18:00)
[2019-02-25 18:10] LABS: BACTERIA,URINE Rare /HPF (None Seen); RBC,URINE NONE SEEN /HPF (0-2); SQUAMOUS EPITHELIAL CELL,UR Few /HPF (None Seen); WBC,URINE NONE SEEN /HPF (0-3)
[2019-02-25] MEDS ORDERED: INSULIN REGULAR, HUMAN 100 UNIT/ML 10 ML VIAL ONE (18:17)
[2019-02-25 20:30] VITALS: BP 149/75
--- NOTE | 2019-02-25 20:48 | NUR ---
Patient given written and verbal discharge instructions. Patient verbalizes understanding of instructions. Patient is ambulatory with steady gait. Refuses offer of penitentiary placement. Patient given list of available shelters in surrounding area.
== END 2019-02-25 21:08 | disposition home or self-care (01) ==
LOC: ER 15:29
DX: E11.65 Type 2 diabetes mellitus with hyperglycemia (principal); Z91.19 Patient's noncompliance with other medical treatment and regimen; I10 Essential (primary) hypertension; F17.200 Nicotine dependence, unspecified, uncomplicated; Z98.890 Other specified postprocedural states; Z88.1 Allergy status to other antibiotic agents; Z91.012 Allergy to eggs; Z91.013 Allergy to seafood; Z59.0 Homelessness; Z79.84 Long term (current) use of oral hypoglycemic drugs; Z79.4 Long term (current) use of insulin
CPT/HCPCS: 36415; 80048; 80076; 81001; 82962 ×2; 85025; 96360; 96372; 99283; J1815; J7030; 81000-TC

== ENCOUNTER 2019-02-27 20:01 | Emergency (ER) | payer MEDICAID ==
[~2019-02-27] VITALS: Ht 172.7 cm; Wt 51.3 kg
--- NOTE | 2019-02-27 20:03 | NUR ---
CALLED FOR PT IN [place]. NO RESPONSE
[2019-02-27] MEDS ORDERED: ACETAMINOPHEN ES 500 MG TABLET PO ONE (20:30)
[2019-02-27] MEDS ORDERED: TDAP [DIPH/PERTUSSIS/TET] 0.5 ML VIAL IM ONE ×2 (20:30→20:42)
[2019-02-27] MEDS ORDERED: IV NS 0.9% 1,000 ML BAG IV ONE (20:30)
[2019-02-27 20:42] LABS: BASOPHILS # (AUTO) 0.1 /CMM (0.0-0.2); BASOPHILS % (AUTO) 0.8 % (0.0-2.0); EOSINOPHILS % (AUTO) 0.4 % (0.0-6.0); HEMATOCRIT 40 % (39-51); HEMOGLOBIN 13.2 g/dL (13.5-17.5); LYMPHOCYTES # (AUTO) 0.2 /CMM (0.8-4.8); LYMPHOCYTES % (AUTO) 1.2 % (20.0-44.0); MEAN CORPUSCULAR HGB CONC 33 g/dl (31.0-36.0); MEAN CORPUSCULAR VOLUME 87 fL (80-96); MONOCYTES # (AUTO) 0.4 /CMM (0.1-1.30); MONOCYTES % (AUTO) 2.6 % (2.0-12.0); NEUTROPHILS # (AUTO) 15.9 /CMM (1.8-8.9); PLATELET COUNT (AUTO) 298 /CMM (150-450); RED BLOOD CELL COUNT(AUTO) 4.62 MIL/uL (4.5-6.0); WHITE BLOOD COUNT (AUTO) 16.8 K/uL (4.3-11.0)
[2019-02-27] MEDS ORDERED: ACETAMINOPHEN ES 500 MG TABLET ONE (20:42)
--- NOTE | 2019-02-27 20:45 | NUR ---
BIBS. C/O "HIT ON HEAD TODAY W/METAL PIPE. -KO. +L EYE SWELLING" -SOB. PT AAOX4, VSS. RR EVEN & UNLABORED. DENIES CP, SOB, DIZZINESS, N/V @ THIS TIME. PT SEEN & EVAL'D BY DR. STRANGE. WILL CONT TO MONITOR.
[2019-02-27 20:56] LABS: CREATININE 0.8 mg/dL (0.6-1.3); POTASSIUM 4.3 mmol/L (3.5-5.1)
[2019-02-27] MEDS ORDERED: INSULIN REGULAR, HUMAN 100 UNIT/ML 10 ML VIAL ONE (21:18)
[2019-02-27] MEDS ORDERED: INSULIN REGULAR, HUMAN 100 UNIT/ML 10 ML VIAL SQ ONE (21:30)
[2019-02-27 23:14] VITALS: BP 123/87
== END 2019-02-27 23:14 | disposition home or self-care (01) ==
LOC: ER 20:03
DX: S05.12XA Contusion of eyeball and orbital tissues, left eye, initial encounter (principal); S09.8XXA Other specified injuries of head, initial encounter; D72.829 Elevated white blood cell count, unspecified; D64.9 Anemia, unspecified; E11.65 Type 2 diabetes mellitus with hyperglycemia; E87.1 Hypo-osmolality and hyponatremia; Z96.642 Presence of left artificial hip joint; Z91.013 Allergy to seafood; Z91.012 Allergy to eggs; Z88.1 Allergy status to other antibiotic agents; Z59.0 Homelessness; Z79.899 Other long term (current) drug therapy; Y08.89XA Assault by other specified means, initial encounter; Y93.89 Activity, other specified; Y92.89 Other specified places as the place of occurrence of the external cause; Y99.8 Other external cause status
CPT/HCPCS: 36415; 70450; 70486; 71045; 72125; 80048; 82962 ×2; 85025; 90471; 90715; 96360; 96372; 99284; J1815; J7030